=== PATIENT | female | born 1950 | race Caucasian/White ===

== ENCOUNTER 2017-10-27 11:10 | Emergency (ER) | payer MEDICARE ==
[~2017-10-27] VITALS: Wt 79.4 kg
[2017-10-27 11:13] VITALS: BP 153/73
[2017-10-27] MEDS ORDERED: NORCO 5-325 TA1 EACH PO (12:59)
== END 2017-10-27 13:02 | disposition home or self-care (01) ==
LOC: ED 11:10
DX: S52.592A Other fractures of lower end of left radius, initial encounter for closed fracture (principal); W19.XXXA Unspecified fall, initial encounter; Y93.89 Activity, other specified; Y92.89 Other specified places as the place of occurrence of the external cause; Y99.9 Unspecified external cause status

== ENCOUNTER → 2018-08-29 | Outpatient (CLI) | payer MEDICARE ==
[~2018-08-29] MED LIST: NORCO 5-325 TA1 EACH PO
[2018-08-30 08:13] LABS: RHEUMATOID ARTHRITIS FACTOR <10.0 IU/mL (0.0-13.9)
[2018-08-30 22:05] LABS: CCP ANTIBODIES IGG/IGA 7 units (0-19)
[2018-09-04 18:07] LABS: HLA-B27 ANTIGEN Negative (.)
== END | disposition home or self-care (01) ==
LOC: LAB 10:43
PROVIDERS: Physician Assistant Medical
DX: M19.90 Unspecified osteoarthritis, unspecified site (principal)